=== PATIENT | female | born 1950 | race Caucasian/White ===

== ENCOUNTER → 2016-11-30 | Outpatient (CLI) | payer MEDICARE | LOC: LAB 16:36 | PROVIDERS: ATTEND Emergency Medicine | DX: R30.0 Dysuria (principal); R39.9 Unspecified symptoms and signs involving the genitourinary system | CPT/HCPCS: 87086 ==

== ENCOUNTER 2016-12-20 15:54 | Emergency (ER) | payer MEDICARE ==
[2016-12-20] MEDS ORDERED: TETANUS/DIPHTHERIA TOX-ADULT 0.5 ML SYR (>=7YO) IM ONE (16:27)
--- NOTE | 2016-12-20 16:28 | ER Document Report ---
ED Medical Screen (RME) - General Stated Complaint: POSSIBLE FINGER INJURY Time seen by provider: 16:24 Mode of Arrival: Ambulatory Information source: Patient Notes: 66-year-old female cut third left dorsal finger over the PIP joint on a standard today [id number] no tendon exposure. Tetanus not current TRAVEL OUTSIDE OF THE [place] IN LAST 30 DAYS: No - Related Data Allergies/Adverse Reactions: diazepam [From Valium] Allergy (Verified 12/20/16 16:25) Respiratory arrest Shellfish * [Shellfish] Allergy (Verified 12/20/16 16:25) BREATHING ISSUES Past Medical History - Past Medical History Cardiac Medical History: Denies: Hx Heart Attack, Hx Hypertension Pulmonary Medical History: Denies: Hx Asthma Neurological Medical History: Denies: Hx Cerebrovascular Accident, Hx Seizures GI Medical History: Reports: Hx Gastroesophageal Reflux Disease. Denies: Hx Hepatitis, Hx Hiatal Hernia, Hx Ulcer Musculoskeltal Medical History: Reports Hx Arthritis Psychiatric Medical History: Reports: Hx Depression Infectious Medical History: Denies: Hx Hepatitis Past Surgical History: Reports: Hx Appendectomy, Hx Cholecystectomy, Hx Hysterectomy, Hx Orthopedic Surgery - R ankle tendon repair, Hx Tonsillectomy. Denies: Hx Mastectomy, Hx Open Heart Surgery, Hx Pacemaker - Immunizations Hx Diphtheria, Pertussis, Tetanus Vaccination: Yes
[2016-12-20] MEDS ORDERED: CEPHALEXIN 500 MG CAPSULE PO ONE (18:39)
[2016-12-20] MEDS ORDERED: HYDROCODONE/ACETAMINOPHEN 5-325 MG TABLET PO ONE (18:58)
[2016-12-20] MEDS ORDERED: HYDROCODONE/ACETAMINOPHEN 5-325 MG 6 TAB/DSPK PO PRN (18:58)
--- NOTE | 2016-12-20 19:01 | ER Document Report ---
ED General - General Chief Complaint: Finger Injury Stated Complaint: POSSIBLE FINGER INJURY Mode of Arrival: Ambulatory TRAVEL OUTSIDE OF THE [place] IN LAST 30 DAYS: No - HPI Patient complains to provider of: left middle finger laceration abrasion Notes: Patient with a left middle finger laceration abrasion occurred after getting her finger on a belt picker. Patient denies any other injuries as for and motion of her knuckle denies crush injury. No fevers or chills and nausea vomiting no other injuries - Related Data Allergies/Adverse Reactions: diazepam [From Valium] Allergy (Verified 12/20/16 16:25) Respiratory arrest Shellfish * [Shellfish] Allergy (Verified 12/20/16 16:25) BREATHING ISSUES Past Medical History - General Information source: Patient - Social History Smoking Status: Unknown if Ever Smoked Chew tobacco use (# tins/day): No Frequency of alcohol use: None Drug Abuse: None Family History: Reviewed & Not Pertinent Patient has suicidal ideation: No Patient has homicidal ideation: No - Past Medical History Cardiac Medical History: Denies: Hx Heart Attack, Hx Hypertension Pulmonary Medical History: Denies: Hx Asthma Neurological Medical History: Denies: Hx Cerebrovascular Accident, Hx Seizures Renal/ Medical History: Denies: Hx Peritoneal Dialysis GI Medical History: Reports: Hx Gastroesophageal Reflux Disease. Denies: Hx Hepatitis, Hx Hiatal Hernia, Hx Ulcer Musculoskeltal Medical History: Reports Hx Arthritis Psychiatric Medical History: Reports: Hx Depression Infectious Medical History: Denies: Hx Hepatitis Past Surgical History: Reports: Hx Appendectomy, Hx Cholecystectomy, Hx Hysterectomy, Hx Orthopedic Surgery - R ankle tendon repair, Hx Tonsillectomy. Denies: Hx Mastectomy, Hx Open Heart Surgery, Hx Pacemaker - Immunizations Hx Diphtheria, Pertussis, Tetanus Vaccination: Yes Review of Systems - Review of Systems Constitutional: No symptoms reported EENT: No symptoms reported Cardiovascular: No symptoms reported Respiratory: No symptoms reported Gastrointestinal: No symptoms reported Genitourinary: No symptoms reported Female Genitourinary: No symptoms reported Musculoskeletal: No symptoms reported Skin: Other - Laceration Hematologic/Lymphatic: No symptoms reported Neurological/Psychological: No symptoms reported -: Yes All other systems reviewed and negative Physical Exam - Vital signs Vitals: Temp Pulse Resp BP Pulse Ox 97.6 F 16 L 16 116/58 L 95 12/20/16 16:25 12/20/16 16:25 12/20/16 16:25 12/20/16 16:25 12/20/16 16:25 Interpretation: Normal - General General appearance: Appears well, Alert - HEENT Head: Normocephalic, Atraumatic Eyes: Normal Pupils: PERRL - Respiratory Respiratory status: No respiratory distress Chest status: Nontender Breath sounds: Normal Chest palpation: Normal - Cardiovascular Rhythm: Regular Heart sounds: Normal auscultation Murmur: No - Abdominal Inspection: Normal Distension: No distension Bowel sounds: Normal Tenderness: Nontender Organomegaly: No organomegaly - Back Back: Normal, Nontender - Extremities General upper extremity: Normal inspection, Nontender, Normal color, Normal ROM , Normal temperature, Other - Patient with small laceration to middle finger at the PIP joint General lower extremity: Normal inspection, Nontender, Normal color, Normal ROM , Normal temperature, Normal weight bearing. No: Lulú's sign - Neurological Neuro grossly intact: Yes Cognition: Normal Orientation: AAOx4 José Miguel Coma Scale Eye Opening: Spontaneous José Miguel Coma Scale Verbal: Oriented José Miguel Coma Scale Motor: Obeys Commands José Miguel Coma Scale Total: 15 Speech: Normal Motor strength normal: LUE, RUE, LLE, RLE Sensory: Normal - Psychological Associated symptoms: Normal affect, Normal mood - Skin Skin Temperature: Warm Skin Moisture: Dry Skin Color: Normal Course - Re-evaluation Re-evalutation: 12/20/16 23:22 Wound was irrigated Steri-Strip Dermabond was applied will give the patient some Keflex for wound coverage patient discharged home - Vital Signs Vital signs: Temp Pulse Resp BP Pulse Ox 97.4 F 55 L 14 123/74 97 12/20/16 19:23 12/20/16 19:23 12/20/16 19:23 12/20/16 19:23 12/20/16 19:23 Procedures - Immobilization Left 3rd digit Immobilizer type: Finger splint (Static) Performed by: PCT Post-Proc Neuro Vasc Exam: Normal Alignment checked and good: Yes - Laceration/Wound Repair Left 3rd digit Wound length (cm): 0.5 Wound's Depth, Shape: Linear Irrigated w/ Saline (mLs): 1,000 Wound Repaired With: Steri-strips, Dermabond Post-procedure wound care: Splint applied Post-procedure NV exam normal: Yes Complications: No Discharge - Discharge Clinical Impression: Laceration of left middle finger Abrasion of left middle finger Qualifiers: Encounter type: initial encounter Qualified Code(s): S60.413A - Abrasion of left middle finger, initial encounter Disposition: HOME, SELF-CARE Instructions: Abrasions ([facility]), Skin Adhesive Closure ([facility]), Care of Steri- Strip Closure ([facility]) Additional Instructions: Please wear the finger splint to keep from bending your middle finger for the next 2-3 days. The Steri-Strips and wound will eventually flake off. Take antibiotics as prescribed. Pain medication as directed. Prescriptions: Cephalexin Monohydrate [Keflex 500 mg Capsule] 500 mg PO QID #20 capsule Hydrocodone Bit/Acetaminophen [Hydrocodon-Acetaminophen 5-325] 1 each PO Q6 #10 tablet Referrals: CHELE HAMEED COLOR DRUM WORKER [Primary Care Provider] - Follow up in 3-5 days
[2016-12-20 20:13] VITALS: BP 123/74
== END 2016-12-20 19:25 | disposition home or self-care (01) ==
LOC: ER 15:54
DX: S60.413A Abrasion of left middle finger, initial encounter (principal); S61.213A Laceration without foreign body of left middle finger without damage to nail, initial encounter; X58.XXXA Exposure to other specified factors, initial encounter
CPT/HCPCS: 99283; 90471; 90714; A9270 ×3

== ENCOUNTER 2016-12-22 17:59 | Emergency (ER) | payer MEDICARE ==
[2016-12-22 18:24] VITALS: BP 121/71
--- NOTE | 2016-12-22 18:27 | ER Document Report ---
ED Medical Screen (RME) - General Chief Complaint: Wound Infection Stated Complaint: PAIN, DRAINAGE/LEFT MIDDLE FINGER Time seen by provider: 18:25 Mode of Arrival: Ambulatory Information source: Patient Notes: 66-year-old female presents to ED for infected left middle finger. She states she came in on on Thursday evening for laceration states no sutures were inserted but it Steri-Strips were applied. She was started on Keflex. She states she now has a purulent drainage from the site. She denies any fevers. I have greeted and performed a rapid initial assessment of this patient. A comprehensive ED assessment and evaluation of the patient, analysis of test results and completion of medical decision making process will be conducted by an additional ED providers. TRAVEL OUTSIDE OF THE [place] IN LAST 30 DAYS: No - Related Data Allergies/Adverse Reactions: diazepam [From Valium] Allergy (Verified 12/20/16 16:25) Respiratory arrest Shellfish * [Shellfish] Allergy (Verified 12/20/16 16:25) BREATHING ISSUES Past Medical History - Past Medical History Cardiac Medical History: Denies: Hx Heart Attack, Hx Hypertension Pulmonary Medical History: Denies: Hx Asthma Neurological Medical History: Denies: Hx Cerebrovascular Accident, Hx Seizures Renal/ Medical History: Denies: Hx Peritoneal Dialysis GI Medical History: Reports: Hx Gastroesophageal Reflux Disease. Denies: Hx Hepatitis, Hx Hiatal Hernia, Hx Ulcer Musculoskeltal Medical History: Reports Hx Arthritis Psychiatric Medical History: Reports: Hx Depression Infectious Medical History: Denies: Hx Hepatitis Past Surgical History: Reports: Hx Appendectomy, Hx Cholecystectomy, Hx Hysterectomy, Hx Orthopedic Surgery - R ankle tendon repair, Hx Tonsillectomy. Denies: Hx Mastectomy, Hx Open Heart Surgery, Hx Pacemaker - Immunizations Hx Diphtheria, Pertussis, Tetanus Vaccination: Yes Physical Exam - Vital signs Vitals: Temp Pulse Resp BP Pulse Ox 98.0 F 67 18 121/71 97 12/22/16 18:23 12/22/16 18:23 12/22/16 18:23 12/22/16 18:23 12/22/16 18:23 Course - Vital Signs Vital signs: Temp Pulse Resp BP Pulse Ox 98.0 F 67 18 121/71 97 12/22/16 18:23 12/22/16 18:23 12/22/16 18:23 12/22/16 18:23 12/22/16 18:23
[2016-12-22] MEDS ORDERED: ACETAMINOPHEN 325 MG TABLET PO ONE (18:32)
[2016-12-22] MEDS ORDERED: SULFAMETHOXAZOLE/TRIMETHOPRIM 800-160 MG TABLET PO ONE (22:47)
--- NOTE | 2016-12-22 22:48 | ER Document Report ---
ED Wound - General Chief Complaint: Wound Infection Stated Complaint: PAIN, DRAINAGE/LEFT MIDDLE FINGER Time seen by provider: 22:47 Mode of Arrival: Ambulatory Information source: Patient TRAVEL OUTSIDE OF THE [place] IN LAST 30 DAYS: No - HPI Patient complains to provider of: Wound infection Occurred: This afternoon Onset/Duration: Gradual Quality of pain: Achy Severity: Moderate Pain Level: 3 Context: Injury Skin Color: Erythema Capillary refill: < 3 seconds Sensations intact: Yes Associated Symptoms: Avulsion, Drainage, Redness, Swelling Notes: Patient is a 66-year-old female presenting to the emergency room for possible wound infection, she was seen in this emergency room on 12/20/2016 for laceration with abrasion, a Steri-Strip repair was performed and patient was placed on Keflex, today she reports increased pain and swelling redness and a small amount of purulent drainage, denies any fevers - Related Data Allergies/Adverse Reactions: diazepam [From Valium] Allergy (Verified 12/20/16 16:25) Respiratory arrest Shellfish * [Shellfish] Allergy (Verified 12/20/16 16:25) BREATHING ISSUES Past Medical History - General Information source: Patient - Social History Smoking Status: Former Smoker Family History: Reviewed & Not Pertinent Patient has suicidal ideation: No Patient has homicidal ideation: No - Past Medical History Cardiac Medical History: Denies: Hx Heart Attack, Hx Hypertension Pulmonary Medical History: Denies: Hx Asthma Neurological Medical History: Denies: Hx Cerebrovascular Accident, Hx Seizures Renal/ Medical History: Denies: Hx Peritoneal Dialysis GI Medical History: Reports: Hx Gastroesophageal Reflux Disease. Denies: Hx Hepatitis, Hx Hiatal Hernia, Hx Ulcer Musculoskeltal Medical History: Reports Hx Arthritis Psychiatric Medical History: Reports: Hx Depression Infectious Medical History: Denies: Hx Hepatitis Past Surgical History: Reports: Hx Appendectomy, Hx Cholecystectomy, Hx Hysterectomy, Hx Orthopedic Surgery - R ankle tendon repair, Hx Tonsillectomy. Denies: Hx Mastectomy, Hx Open Heart Surgery, Hx Pacemaker - Immunizations Hx Diphtheria, Pertussis, Tetanus Vaccination: Yes Review of Systems - Review of Systems Constitutional: No symptoms reported EENT: No symptoms reported Cardiovascular: No symptoms reported Respiratory: No symptoms reported Gastrointestinal: No symptoms reported Genitourinary: No symptoms reported Female Genitourinary: No symptoms reported Musculoskeletal: No symptoms reported Skin: See HPI Hematologic/Lymphatic: No symptoms reported Neurological/Psychological: No symptoms reported -: Yes All other systems reviewed and negative Physical Exam - Vital signs Vitals: Temp Pulse Resp BP Pulse Ox 98.0 F 67 18 121/71 97 12/22/16 18:23 12/22/16 18:23 12/22/16 18:23 12/22/16 18:23 12/22/16 18:23 Interpretation: Normal - Notes Notes: - General General appearance: Appears well, Alert In distress: None - HEENT Head: Normocephalic, Atraumatic Eyes: Normal Conjunctiva: Normal Extraocular movements intact: Yes Eyelashes: Normal Pupils: PERRL - Respiratory Respiratory status: No respiratory distress - Cardiovascular Rhythm: Regular - Abdominal Inspection: Normal - Back Back: Normal - Extremities General upper extremity: Left hand, third digit with mild swelling, erythema, Steri-Strips are in place over the wound, however with the amount of swelling appears as though the Steri-Strips are actually cutting into the tissue rather than doing their job to repair the wound, distal sensation and motor is intact, with brisk capillary refill General lower extremity: Normal inspection - Neurological Neuro grossly intact: Yes Orientation: AAOx4 [place] Coma Scale Eye Opening: Spontaneous José Miguel Coma Scale Verbal: Oriented [place] Coma Scale Motor: Obeys Commands [place] Coma Scale Total: 15 - Psychological Associated symptoms: Normal affect, Normal mood - Skin Skin Temperature: Warm Skin Moisture: Dry Skin Color: Normal Course - Re-evaluation Re-evalutation: 12/22/16 23:08 Steri-Strips and skin adhesive were removed, wound was cleaned and dressed once again in the emergency room, patient will be placed on Bactrim, she was advised to continue taking the Keflex as well, follow up with her primary care provider and a hand surgeon within the next 2-3 days or return if symptoms worsen, patient acknowledges understanding and agreement with this plan - Vital Signs Vital signs: Temp Pulse Resp BP Pulse Ox 67 F L 67 18 121/71 97 12/22/16 18:24 12/22/16 18:24 12/22/16 18:24 12/22/16 18:24 12/22/16 18:24 Discharge - Discharge Clinical Impression: Wound infection, posttraumatic Condition: Stable Disposition: HOME, SELF-CARE Instructions: Antibiotic Ointment Protection ([facility]), Laceration Care ([facility]), Prophylactic Antibiotic ([facility]), Soap Cleansing ([facility]) Additional Instructions: Follow up with your primary care provider in 2-3 days for wound check. Keep wound clean and covered with antibiotic ointment and a clean dressing. Gently rinse with warm water and soap twice daily. Return to the emergency room immediately if symptoms worsen or any additional concerns. Prescriptions: Sulfamethoxazole/Trimethoprim [Bactrim Ds Tablet] 1 each PO BID #20 tablet Referrals: CHELE HAMEED WRAPPING CLERK [Primary Care Provider] - Follow up as needed
== END 2016-12-23 | disposition home or self-care (01) ==
LOC: ER 17:59
DX: S61.213A Laceration without foreign body of left middle finger without damage to nail, initial encounter (principal); L08.89 Other specified local infections of the skin and subcutaneous tissue; X58.XXXA Exposure to other specified factors, initial encounter; Z91.013 Allergy to seafood; K21.9 Gastro-esophageal reflux disease without esophagitis; Z90.49 Acquired absence of other specified parts of digestive tract; Z90.710 Acquired absence of both cervix and uterus
CPT/HCPCS: 99282; A9270 ×2

== ENCOUNTER → 2017-04-02 | Outpatient (CLI) | payer MEDICARE, OTHER | LOC: RAD 06:51 | PROVIDERS: ATTEND Nurse Practitioner | DX: R51 Headache (principal) | CPT/HCPCS: 70450 ==